=== PATIENT | female | born 1990 | race Caucasian/White ===

== ENCOUNTER → 2023-05-03 14:30 | Outpatient (BNVA) | payer BC, SELFPAY | PROVIDERS: Family Provider Family Medicine; PCP Family Medicine; Visit Provider Family Medicine | DX: Z34.90 Encounter for supervision of normal pregnancy, unspecified, unspecified trimester (principal); R30.0 Dysuria | CPT/HCPCS: 80307; 81000; 81025; 84144; 84443; 84702; 85025; 86592; 86762; 86803; 86850; 86900; 87086; 87340; 87491; 87591; 87624; 87806 ==

== ENCOUNTER 2023-06-15 08:16 | Outpatient (CLI) | payer BC, MEDICAID, SELFPAY ==
--- NOTE | 2023-06-15 08:30 | US_ITS ---
WS: [id number] EARLY OBSTETRICAL ULTRASOUND (<14 WEEKS). HISTORY: Dating US - in next 1 week if possible COMPARISON: None available. Twin intrauterine gestation is identified. There is a thick membrane measuring greater yandel n 2 mm. Fetus A: [place]-rump length 7.9 cm. Gestational age 13 weeks 6 days. Heart rate 160 bpm. Normal amount of fluid surrounding the fetus. There is a separate posterior placenta. Fetus B: [place]-rump length 7.9 cm. Gestational age 13 weeks 6 days. Heart rate 157 bpm. Separate plac enta identified anteriorly. Normal amniotic fluid surrounding the fetus. Cervix is closed. IMPRESSION: 1. Twin intrauterine gestation. 2. Twin A: 13 weeks 6 days. 3. Twin B: 13 weeks 6 days.
== END 2023-06-15 08:17 | disposition home or self-care (01) ==
LOC: RAD 08:20
PROVIDERS: PCP Family Medicine; Visit Provider Family Medicine
DX: Z34.81 Encounter for supervision of other normal pregnancy, first trimester (principal)
CPT/HCPCS: 76801; 76802

== ENCOUNTER → 2023-07-05 16:52 | Outpatient (BNVA) | payer BC, MEDICAID, SELFPAY | PROVIDERS: PCP Family Medicine; Visit Provider Family Medicine | DX: R30.0 Dysuria (principal); R35.0 Frequency of micturition | CPT/HCPCS: 81000; 87086 ==

== ENCOUNTER → 2023-08-05 10:51 | Outpatient (BNVA) | payer BC, MEDICAID, SELFPAY | PROVIDERS: PCP Family Medicine; Visit Provider Clinical Nurse Specialist Adult Health | DX: J02.9 Acute pharyngitis, unspecified (principal) | CPT/HCPCS: 87071; 87880 ==

== ENCOUNTER 2023-09-21 08:33 | Oncology outpatient (recurring) (ONCR) | payer BC, MEDICAID, SELFPAY ==
[2023-09-21 09:00] VITALS: BP 124/79; PULSE 91; RESP 16; TEMP 36.5; O2SAT 99
[2023-09-21 10:35] VITALS: BP 116/74; PULSE 85; RESP 16; TEMP 36.7; O2SAT 99
[2023-09-21 10:40] VITALS: BP 116/74; PULSE 85; RESP 16; TEMP 36.7; O2SAT 99
== END 2023-09-25 23:59 | disposition home or self-care (01) ==
PROVIDERS: PCP Family Medicine; Visit Provider Family Medicine
DX: O26.899 Other specified pregnancy related conditions, unspecified trimester (principal); Z67.91 Unspecified blood type, Rh negative
CPT/HCPCS: 36415; 86850; 86900; 90384

== ENCOUNTER 2023-09-21 16:09 | Outpatient (CLI) | payer BC, MEDICAID, SELFPAY ==
[2023-09-21 16:30] VITALS: BP 122/76; PULSE 120
[2023-09-21 16:45] VITALS: BP 119/75; PULSE 115
[2023-09-21 16:55] VITALS: BP 119/75; PULSE 115; RESP 16
== END 2023-09-21 17:00 | disposition home or self-care (01) ==
LOC: OPOB 16:12 → OBGYN 16:13
PROVIDERS: PCP Family Medicine; Visit Provider Family Medicine
DX: O36.8190 Decreased fetal movements, unspecified trimester, not applicable or unspecified (principal); Z3A.00 Weeks of gestation of pregnancy not specified
CPT/HCPCS: 59025; 99211

== ENCOUNTER 2023-11-05 10:34 | Outpatient (CLI) | payer BC, MEDICAID, SELFPAY ==
[2023-11-05 10:34] VITALS: BMI 35.2
[2023-11-05 11:00] VITALS: BP 118/80; PULSE 93
== END 2023-11-05 11:05 | disposition home or self-care (01) ==
LOC: OPOB 10:34 → OBGYN 10:35
PROVIDERS: PCP Family Medicine; Visit Provider Family Medicine
DX: O30.099 Twin pregnancy, unable to determine number of placenta and number of amniotic sacs, unspecified trimester (principal); Z3A.00 Weeks of gestation of pregnancy not specified
CPT/HCPCS: 59025

== ENCOUNTER 2023-11-12 10:51 | Outpatient (CLI) | payer BC, MEDICAID, SELFPAY ==
[2023-11-12 10:59] VITALS: BP 123/73; PULSE 142
[2023-11-12 11:00] VITALS: PULSE 142; O2SAT 98
[2023-11-12 11:05] VITALS: PULSE 131; O2SAT 98; BMI 36.1
[2023-11-12 11:10] VITALS: PULSE 129; O2SAT 98
[2023-11-12 11:19] VITALS: BP 121/78; PULSE 131
[2023-11-12 11:26] VITALS: BP 121/78; PULSE 131
== END 2023-11-12 11:28 | disposition home or self-care (01) ==
LOC: OPOB 10:53 → OBGYN 10:55
PROVIDERS: PCP Family Medicine; Visit Provider Family Medicine
DX: O30.099 Twin pregnancy, unable to determine number of placenta and number of amniotic sacs, unspecified trimester (principal); Z3A.00 Weeks of gestation of pregnancy not specified
CPT/HCPCS: 59025

== ENCOUNTER 2023-11-18 15:24 | Outpatient (CLI) | payer BC, MEDICAID, SELFPAY ==
[2023-11-18 15:36] VITALS: BMI 36.2
[2023-11-18] MEDS: betamethasone susp 6 mg/mL 1 mL (per mL) 12 MG IM (15:52)
== END 2023-11-18 16:00 | disposition home or self-care (01) ==
LOC: OPOB 15:33 → OBGYN 15:33
PROVIDERS: PCP Family Medicine; Visit Provider Family Medicine
DX: O26.899 Other specified pregnancy related conditions, unspecified trimester (principal); Z3A.00 Weeks of gestation of pregnancy not specified
CPT/HCPCS: 96372; 99211; J0702

== ENCOUNTER 2023-11-19 14:18 | Outpatient (CLI) | payer BC, MEDICAID, SELFPAY ==
[2023-11-19 14:15] VITALS: BMI 35.9
[2023-11-19 15:06] VITALS: BP 127/83; PULSE 126
[2023-11-19] MEDS: betamethasone susp 6 mg/mL 1 mL (per mL) 12 MG IM (15:08)
[2023-11-19 15:30] VITALS: BP 127/83; PULSE 126
== END 2023-11-19 15:30 | disposition home or self-care (01) ==
LOC: OPOB 14:20 → OBGYN 14:43
PROVIDERS: PCP Family Medicine; Visit Provider Family Medicine
DX: O36.5990 Maternal care for other known or suspected poor fetal growth, unspecified trimester, not applicable or unspecified (principal); Z3A.00 Weeks of gestation of pregnancy not specified
CPT/HCPCS: 59025; 96372; J0702

== ENCOUNTER → 2025-05-23 10:30 | Outpatient (BNVA) | payer BC, MEDICAID, SELFPAY | PROVIDERS: PCP Family Medicine; Visit Provider Clinical Nurse Specialist Adult Health | DX: Z30.8 Encounter for other contraceptive management (principal) | CPT/HCPCS: 81025 ==